=== PATIENT | female | born 1980 | race Caucasian/White ===

== ENCOUNTER 2021-05-07 12:52 | Emergency (ER) | payer OTHER ==
--- OUTSIDE RECORDS SUMMARY | 2021-05-07 12:54 | XMS REPORT | Continuity of Care Document ---
:1980 Author Organization [facility] t Address [address] [place] [address] Care Team Providers Name Role Phone Fernando HERNANDEZ Primary Care Physician Joan Rangel Attending Clinician [phone] Problems This patient has no known problems. Allergies, Adverse Reactions, Alerts This patient has no known allergies or adverse reactions. Social History Social Habit Start Date Stop Date Quantity Comments Source Alcohol intake 2017-05-07 2017-05-07 Current [facility] 00:00:00 00:00:00 non-drinker of alcohol (finding) Sex Assigned At [birth year] [facility] ethodist 00:00:00 00:00:00 Smoking Status Start Date Stop Date Source Never smoker [place] [facility] Medications This patient has no known medications. Immunizations Ordered Immunization Filled Immunization Date Status Commen ts Source Name Name Tdap 2017-04-25 [facility] 00:00:00 Syn[facility] MMR 2017-04-25 [facility] 00:00:00 Syn[facility] Procedures This patient has no known procedures. Encounters Start End Encounter Admission Attending Care Care Encounter Source Date/Time Date/Time Type Type Clinicians Facility Department ID 2021-02-24 2021-02-24 Outpatient [facility] [id number] 00:00:00 00:00:00 , Brooke [id number] Joan [id number] 2021-02-10 2021-02-10 Outpatient [facility] [id number] 00:00:00 00:00:00 , Brooke [id number] Joan [id number] Results This patient has no known results.
[2021-05-07 13:50] LABS: Absolute Lymphocytes (CBC) 1.2 K/uL (0.7-4.9); Basophils % 0.9 % (0-1.3); Hematocrit 38.3 % (36.0-45.0); Lymphocytes % 17.2 % (15.3-44.8); MPV 9.4 fL (7.6-11.3); RBC Red Blood Cell Count 4.72 M/uL (3.86-4.86)
[2021-05-07 14:10] LABS: ALT/SGPT 18 U/L (12-78); AST/SGOT 11 U/L (15-37); Albumin 3.8 g/dL (3.4-5.0); Alkaline Phosphatase 56 U/L (45-117); BUN Blood Urea Nitrogen 8 mg/dL (7-18); Bicarbonate 26 mmol/L (21-32); Bilirubin Direct 0.1 mg/dL (0-0.2); Bilirubin Total 0.7 mg/dL (0.2-1.0); Glucose Level 96 mg/dL (74-106); Magnesium 2.3 mg/dL (1.8-2.4); NT PRO-BNP 56 pg/mL (<125); Potassium 4.2 mmol/L (3.5-5.1); Protein, Total 7.1 g/dL (6.4-8.2); Sodium Level 141 mmol/L (136-145); Troponin (Emerg Dept Use Only) < 0.02 ng/mL (0.0-0.045)
[2021-05-07 14:19] LABS: Protime INR 1.15
--- NOTE | 2021-05-07 15:07 | RAD REPORT ---
EXAM DESCRIPTION: RAD - Chest Single View - 05/07/2021 2:30 pm CLINICAL HISTORY: CHEST PAIN COMPARISON: None TECHNIQUE: AP portable chest image was obtained 05/07/2021 2:30 pm . FINDINGS: Lungs are clear. Heart and vasculature are normal. No measurable pleural effusion and no p neumothorax. No acute bony abnormality seen. No acute aortic findings suspected. IMPRESSION: No acute cardiopulmonary process.
--- NOTE | 2021-05-07 16:03 | EDPHYS ---
Physician Documentation [facility] Name: Karin Giles Age: 40 yrs Sex: Female : 1980 Arrival Date: 05/07/2021 Time: 12:55 Bed 19 Private MD: ED Physician Sultana Sims HPI: 05/07 14:11 This 40 yrs old Female presents to ER via Ambulatory with complaints of Leg jmm Swelling. 14:11 The patient or guardian reports chest pain that is located primarily in the substernal [facility] area. Onset: gradually, 1 week(s) ago. The pain does not radiate. Associated signs and symptoms: Pertinent positives: lower extremity swelling. The chest pain is described as aching, sharp. Duration: The patient or guardian reports multiple episodes, that are intermittent. Modifying factors: The symptoms are alleviated by nothing. the symptoms are aggravated by nothing. The patient has not experienced similar symptoms in the past. Historical: - Allergies: 13:12 No Known Allergies; ss - Home Meds: 13:12 labetalol 100 mg Oral tab 1 tab 2 times per day [Active]; ss - PMHx: 13:12 Hypertension; ss - PSHx: 13:12 ; Cholecystectomy; low back; ss - Immunization history:: Adult Immunizations up to date, Client reports having NOT received the Covid vaccine. - Social history:: Smoking status: Patient denies any tobacco usage or history of. ROS: 14:11 Constitutional: Negative for fever, chills, and weight loss. [facility] 14:11 Cardiovascular: Positive for chest pain. 14:11 Respiratory: Positive for shortness of breath. 14:11 MS/extremity: Positive for swelling. 14:11 All other systems are negative. Exam: 14:11 Constitutional: This is a well developed, well nourished patient who is awake, alert, jmm and in no acute distress. Head/Face: atraumatic. Eyes: EOMI, no conjunctival erythema appreciated ENT: Moist Mucus Membranes Neck: Trachea midline, Supple Chest/axilla: Normal chest wall appearance and motion. Cardiovascular: Regular rate and rhythm. No edema appreciated Respiratory: Normal respirations, no respiratory distress appreciated Abdomen/GI: Non distended, soft Back: Normal ROM Skin: General appearance color normal 14:11 Musculoskeletal/extremity: pain noted to the right thigh, negative homans. 14:11 Skin: Appearance: Color: normal in color. 14:11 Neuro: Orientation: is normal, Mentation: is normal, Memory: is normal. 14:11 Psych: Behavior/mood is pleasant, cooperative. Vital Signs: 13:05 BP 144 / 101; Pulse 90; Resp 16; Temp 98.2(TE); Pulse Ox 98% on R/A; Weight 104.33 kg; ss Height 5 ft. 7 in. (170.18 cm); Pain 0/10; 13:56 BP 130 / 91; Pulse 83; Resp 16; Pulse Ox 100% on R/A; zb 14:18 BP 119 / 90; Pulse 83; Resp 16; Pulse Ox 100% ; zb 15:30 BP 127 / 89; Pulse 84; Resp 16; Pulse Ox 100% on R/A; zb 16:06 BP 130 / 92; Pulse 84; Resp 16; Pulse Ox 100% on R/A; zb 13:05 Body Mass Index 36.02 (104.33 kg, 170.18 cm) ss MDM: 13:27 Patient medically screened. [facility] 16:01 The patient was not given aspirin in the Emergency Department. Data reviewed: [facility] signs, nurses notes, lab test result(s), EKG, radiologic studies, plain films. Counseling: I had a detailed discussion with the patient and/or guardian regarding: the historical points, exam findings, and any diagnostic results supporting the discharge/admit diagnosis, lab results, radiology results, the need for outpatient follow up, to return to the emergency department if symptoms worsen or persist or if there are any questions or concerns that arise at home. ED course: Patient advised to follow up outpatient with cardiology for further evaluation. patient otherwise given strict return precautions. patient understood and agrees with the plan of care. . 05/07 13:29 Order name: Basic Metabolic Panel; Complete Time: 14:21 [facility] 05/07 13:29 Order name: CBC with Diff; Complete Time: 14:03 [facility] 05/07 13:29 Order name: LFT's; Complete Time: 14:21 [facility] 05/07 13:29 Order name: Magnesium; Complete Time: 14:21 [facility] 05/07 13:29 Order name: NT PRO-BNP; Complete Time: 14:21 [facility] 05/07 13:29 Order name: PT-INR; Complete Time: 14:21 [facility] 05/07 13:29 Order name: Troponin (emerg Dept Use Only); Complete Time: 14:21 [facility] 05/07 13:29 Order name: XRAY Chest (1 view); Complete Time: 15:10 [facility] 05/07 13:29 Order name: EKG; Complete Time: 13:30 [facility] 05/07 13:29 Order name: Cardiac monitoring; Complete Time: 13:41 [facility] 05/07 13:29 Order name: EKG - Nurse/Tech; Complete Time: 13:41 [facility] 05/07 13:29 Order name: IV Saline Lock; Complete Time: 13:41 [facility] 05/07 13:29 Order name: Labs collected and sent; Complete Time: 13:42 [facility] 05/07 15:45 Order name: D-Dimer; Complete Time: 15:57 [facility] 05/07 13:29 Order name: O2 Per Protocol; Complete Time: 13:31 [facility] 05/07 13:29 Order name: O2 Sat Monitoring; Complete Time: 13:31 [facility] Administered Medications: No medications were administered Disposition: 05/07/21 16:02 Discharged to Home. Impression: Chest pain, unspecified, Pain in right leg. - Condition is Stable. - Discharge Instructions: Nonspecific Chest Pain, Musculoskeletal Pain. - Medication Reconciliation Form, Thank You Letter, Antibiotic Education, Prescription Opioid Use form. - Follow up: Sixto Brasher MD; When: 2 - 3 days; Reason: Recheck today's complaints, Continuance of care, Re-evaluation by your physician. Signatures: Dispatcher [employer] EDMS Tip Mejia PA PA jmm Smirch, Shelby, RN RN ss Brown, Zipporah, RN RN zb Corrections: (The following items were deleted from the chart) 16:27 16:02 05/07/2021 16:02 Discharged to Home. Impression: Chest pain, unspecified; Pain in zb right leg. Condition is Stable. Forms are Medication Reconciliation Form, Thank You Letter, Antibiotic Education, Prescription Opioid Use. Follow up: Sixto Brasher; When: 2 - 3 days; Reason: Recheck today's complaints, Continuance of care, Re-evaluation by your physician. darcy
--- NOTE | 2021-05-07 16:03 | ER ---
Nurse's Notes [facility] Name: Karin Giles Age: 40 yrs Sex: Female : 1980 Arrival Date: 05/07/2021 Time: 12:55 Bed 19 Private MD: Diagnosis: Chest pain, unspecified;Pain in right leg Presentation: 05/07 13:05 Chief complaint: Patient states: Pain to R lower extremity and swelling that began 1 ss week ago. Pt reports that the swelling has improved minimally, but is now having some episodic chest discomfort. Coronavirus screen: Client denies travel out of the [place] in the last 14 days. Ebola Screen: Patient denies exposure to infectious person. Patient denies travel to an Ebola-affected area in the 21 days before illness onset. Initial Sepsis Screen: Does the patient meet any 2 criteria? No. Patient's initial sepsis screen is negative. Does the patient have a suspected source of infection? No. Patient's initial sepsis screen is negative. Risk Assessment: Do you want to hurt yourself or someone else? Patient reports no desire to harm self or others. Onset of symptoms was April 30, 2021. 13:05 Method Of Arrival: Ambulatory ss 13:05 Acuity: DG 3 ss Historical: - Allergies: 13:12 No Known Allergies; ss - Home Meds: 13:12 labetalol 100 mg Oral tab 1 tab 2 times per day [Active]; ss - PMHx: 13:12 Hypertension; ss - PSHx: 13:12 ; Cholecystectomy; low back; ss - Immunization history:: Adult Immunizations up to date, Client reports having NOT received the Covid vaccine. - Social history:: Smoking status: Patient denies any tobacco usage or history of. Screenin:53 Abuse screen: Denies threats or abuse. Denies injuries from another. Nutritional zb screening: No deficits noted. Tuberculosis screening: No symptoms or risk factors identified. Fall Risk None identified. Assessment: 13:42 General: Appears in no apparent distress. uncomfortable, Behavior is calm, cooperative, zb appropriate for age. Pain: Complains of pain in anterior aspect of right upper chest and anterior aspect of left upper chest Pain does not radiate. Pain currently is 4 out of 10 on a pain scale. Quality of pain is described as aching, dull, tingling, Pain began suddenly, " couple days ago". Neuro: Level of Consciousness is awake, alert, obeys commands, Oriented to person, place, time, situation. Cardiovascular: Capillary refill < 3 seconds Patient's skin is warm and dry. Cardiovascular: Reports chest pain, Denies shortness of breath. Respiratory: Airway is patent Respiratory effort is even, unlabored, Respiratory pattern is regular, symmetrical. GI: Abdomen is round. Derm: Skin is normal. Musculoskeletal: Range of motion: intact in all extremities, Parent/caregiver report the patient having pain in right leg swelling. 15:00 Reassessment: Patient appears in no apparent distress at this time. Patient and/or zb family updated on plan of care and expected duration. Pain level reassessed. Patient is alert, oriented x 3, equal unlabored respirations, skin warm/dry/pink. 16:05 Reassessment: Patient appears in no apparent distress at this time. Patient and/or zb family updated on plan of care and expected duration. Pain level reassessed. Patient is alert, oriented x 3, equal unlabored respirations, skin warm/dry/pink. Vital Signs: 13:05 BP 144 / 101; Pulse 90; Resp 16; Temp 98.2(TE); Pulse Ox 98% on R/A; Weight 104.33 kg; ss Height 5 ft. 7 in. (170.18 cm); Pain 0/10; 13:56 BP 130 / 91; Pulse 83; Resp 16; Pulse Ox 100% on R/A; zb 14:18 BP 119 / 90; Pulse 83; Resp 16; Pulse Ox 100% ; zb 15:30 BP 127 / 89; Pulse 84; Resp 16; Pulse Ox 100% on R/A; zb 16:06 BP 130 / 92; Pulse 84; Resp 16; Pulse Ox 100% on R/A; zb 13:05 Body Mass Index 36.02 (104.33 kg, 170.18 cm) ED Course: 12:55 Patient arrived in ED. mr 13:10 Tip Mejia PA is PHCP. jmm 13:10 Sultana Sims MD is Attending Physician. jmm 13:11 Triage completed. ss 13:12 Arm band placed on right wrist. 13:30 Gill Mann, URIEL is Primary Nurse. zb 13:40 EKG done, by ED staff, reviewed by Tip BURGOS. 3 13:40 Inserted saline lock: 20 gauge in right antecubital area, using aseptic technique. zb Blood collected. 13:53 Patient has correct armband on for positive identification. manager monitoring on. Pulse zb ox on. NIBP on. 14:30 XRAY Chest (1 view) In Process Unspecified. EDMS 16:02 Sixto Brasher MD is Referral Physician. [facility] 16:07 No provider procedures requiring assistance completed. IV discontinued, intact, zb bleeding controlled, No redness/swelling at site. Pressure dressing applied. Administered Medications: No medications were administered Outcome: 16:02 Discharge ordered by . julian 16:07 Discharged to home ambulatory, with family. zb 16:07 Condition: stable 16:07 Discharge instructions given to patient, Instructed on discharge instructions, follow up and referral plans. Demonstrated understanding of instructions, follow-up care. 16:27 Patient left the ED. zb Signatures: Dispatcher [employer] EDDE Tip Mejia PA PA jm Elizabeth Gaines mr MonterrosoHailee rose, RN RN Myla Camargo 3 Gill Mann RN RN zb Corrections: (The following items were deleted from the chart) 14:18 14:05 Reassessment: Patient appears in no apparent distress at this time. Patient zb and/or family updated on plan of care and expected duration. Pain level reassessed. Patient is alert, oriented x 3, equal unlabored respirations, skin warm/dry/pink. c/o headache. notified ecp. medication ordered and given. zb
[2021-05-07 16:39] VITALS: TEMP 98.2
[2021-05-07 16:42] VITALS: O2SAT 100
[2021-05-07 16:47] VITALS: BP 130/92
--- NOTE | 2021-05-08 08:24 | EKG ---
Test Date: 2021-05-07 Test Time: 13:37:45 Informatics Manager: CESAR MEASUREMENT RESULTS: Intervals: Rate: 80 NE: 162 QRSD: 82 QT: 374 QTc: 431 [place]: P: 35 NE: 162 QRS: 9 T: 28 INTERPRETIVE STATEMENTS: Normal sinus rhythm Possible Left atrial enlargement Cannot rule out Anterior infarct, age undetermined Abnormal ECG No previous ECG available for comparison Electronically Signed On 05-08-21 08:23:49 CDT by Raoul Calle
== END 2021-05-07 16:27 | disposition home or self-care (01) ==
LOC: ER 12:52
DX: R07.9 Chest pain, unspecified (principal); M79.651 Pain in right thigh; I10 Essential (primary) hypertension
CPT/HCPCS: 36415; 71045; 80048; 80076; 83735; 83880; 84484; 85025; 85379; 85610; 93005; 99284